=== PATIENT | female | born 1985 | race American Indian/Alaskan Native ===

== ENCOUNTER 2016-04-22 09:20 | Outpatient (CLI) | payer OTHER ==
[~2016-04-22 09:20] MED LIST: PROVENTIL IH ONE
== END 2016-04-22 09:21 | disposition home or self-care (01) ==
LOC: PF 09:20
PROVIDERS: ATTEND Internal Medicine
DX: B20 Human immunodeficiency virus [HIV] disease (principal); J45.909 Unspecified asthma, uncomplicated; F32.9 Major depressive disorder, single episode, unspecified; G64 Other disorders of peripheral nervous system
CPT/HCPCS: 94060; 94640

== ENCOUNTER 2017-02-18 20:19 | Emergency (ER) | payer OTHER ==
[2017-02-18 20:31] VITALS: BP 190/119
[2017-02-18] MEDS ORDERED: TYLENOL ONE (20:41)
[2017-02-18] MEDS ORDERED: TYLENOL PO ONE (20:43)
== END 2017-02-18 22:40 | disposition left against medical advice (07) ==
LOC: ED 20:19
DX: J02.9 Acute pharyngitis, unspecified (principal); R05 Cough; H53.8 Other visual disturbances; Z53.21 Procedure and treatment not carried out due to patient leaving prior to being seen by health care provider
CPT/HCPCS: 87116; 87400; 87430